=== PATIENT | female | born 2000 | race Caucasian/White ===

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

== ENCOUNTER 2022-07-23 23:16 | Emergency (ER) | payer OTHER, SELFPAY ==
--- NOTE | ~2022-07-23 | XR_ITS ---
Right Hand Technique: PA, oblique, and lateral views were obtained. Clinical History: Pain Findings: No acute fracture or dislocation is seen. Osseous alignment is anatomic. Joint spaces are p reserved. Soft tissues are unremarkable. Impression: Unremarkable right hand. Reviewed, dictated and finalized at location [facility] Impression: Unremarkable right hand.
[2022-07-23 23:30] VITALS: BP 140/93; PULSE 94; RESP 20; TEMP 36.4; O2SAT 99
--- NOTE | 2022-07-24 02:02 | ED.GENADULT ---
HPI - General Adult General Chief complaint: Extremity Injury, Upper Stated complaint: hand injury to right hand Time Seen by Provider: 07/24/22 01:58 History of Present Illness HPI narrative: Patient 22-year-old female who presents emergency department with chief complaint of right hand pain. Patient reports she was working at [employer] in a bag pushed into her hand between her first and second finger patient reports that she has bruising on the dorsum of her right hand reports that she has pain with range of motion and reports there is no lacerations. The patient reports no pain in the wrist denies pain in the anatomical snuffbox patient reports that this happened about a week ago and has not improved. Related Data Allergies Allergy/AdvReac Type Severity Reaction Status Date / Time cetirizine Allergy Unknown unknown Verified 07/23/22 23:17 Review of Systems Review of Systems: A 10 system review of systems was completed on the patient and is negative except for what is stated in the HPI. Nursing and ancillary documentation was reviewed. PMFSH Past Medical History Medical History Anxiety High cholesterol Pilonidal cyst Surgical History Surgical History H/O tympanostomy History of excision of mass (05/29/18) on right forearm History of placement of ear tubes Family History Family History Grandparent Acute myocardial infarction maternal grandfather Malignant neoplasm of prostate maternal grandfather Breast cancer maternal grandmother Social History Social History Smoking status: Never smoker Alcohol intake: never Substance use: never Living arrangements: with family Occupation/Education: occupation Additional occupation/education comments: [employer] Gender identity (if verbalized by the patient): Female Exam Narrative: GENERAL: Well-appearing, well-nourished, and in no acute distress. HEAD: Normocephalic, atraumatic. EYES: PERRLA and EOMI. ENT: Nares clear, no rhinorrhea or epistaxis. Mucous membranes moist. NECK: Supple. CHEST: Clear to auscultation. No respiratory distress. HEART: Regular rate and rhythm. No murmur heard. Normal peripheral pulses. ABDOMEN: Soft, nontender, nondistended, normal active bowel sounds. EXTREMITIES: Normal range of motion. No edema. There is bruising present on the dorsum of the right hand between the first and second digit in the webspace there is no bony step-off noted or deformity SKIN: Warm, dry, no rash. NEURO: No focal deficits. Alert and oriented x3. PSYCH: Normal mood and affect. Course Vital Signs Vital signs: Vital Signs Temperature 36.4 C 07/23/22 23:30 Pulse Rate 94 07/23/22 23:30 Respiratory Rate 20 07/23/22 23:30 Blood Pressure 140/93 H 07/23/22 23:30 Pulse Oximetry 99 07/23/22 23:30 Oxygen Delivery Room Air 07/23/22 23:30 Temperature 36.4 C 07/23/22 23:30 Pulse Rate 94 07/23/22 23:30 Respiratory Rate 20 07/23/22 23:30 Blood Pressure 140/93 H 07/23/22 23:30 Pulse Oximetry 99 07/23/22 23:30 Oxygen Delivery Room Air 07/23/22 23:30 Medical Decision Making MDM Narrative Medical decision making narrative: Differential diagnosis includes contusion sprain fracture. Plain film x-ray was interpreted by me no evidence of fracture With the x-ray showing no evidence of fracture the patient will be placed with an [place] wrap on the right hand and will be started on anti-inflammatories the patient is to follow-up with her primary care provider Vital Signs Vital Signs: Vital Signs Temperature 36.4 C 07/23/22 23:30 Pulse Rate 94 07/23/22 23:30 Respiratory Rate 20 07/23/22 23:30 Blood Pressure 140/93 H 07/23/22 23:30 Pulse
== END 2022-07-24 02:11 | disposition home or self-care (01) ==
PROVIDERS: Emergency Provider Emergency Medicine; PCP Pediatrics
DX: S60.221A Contusion of right hand, initial encounter (principal); S63.91XA Sprain of unspecified part of right wrist and hand, initial encounter; W22.8XXA Striking against or struck by other objects, initial encounter
CPT/HCPCS: 73130; 99283